=== PATIENT | female | born 1960 | race Caucasian/White ===

== ENCOUNTER 2023-05-20 17:18 | Emergency (ER) | payer OTHER ==
[~2023-05-20] VITALS: Ht 167.6 cm; Wt 68.0 kg
[2023-05-20 18:17] VITALS: BP 125/77; PULSE 71; RESP 18; TEMP 97.9; O2SAT 99
[2023-05-20 19:29] VITALS: BP 125/77; PULSE 71; RESP 18; TEMP 97.9; O2SAT 99
== END 2023-05-20 19:29 | disposition home or self-care (01) ==
LOC: MED 17:18
DX: R05.9 Cough, unspecified (principal); J02.9 Acute pharyngitis, unspecified; E11.9 Type 2 diabetes mellitus without complications; I10 Essential (primary) hypertension; Z88.0 Allergy status to penicillin
CPT/HCPCS: 71045; 99283